=== PATIENT | female | born 1950 | race Caucasian/White ===

== ENCOUNTER → 2016-12-25 | Outpatient (CLI) | payer OTHER ==
[~2016-12-25] MED LIST: ACYCLOVIR; ACYCLOVIR400 MG PO; COMBIVENT U/D3 M2 INH; COMBIVENT14.7 GM IN; FLOVENT HFA10.6 GM INH; FLOVENT7.9 GM IN; GABAPENTIN300 MG PO; GAS RELIEF125 MG PO; GENTEAL15 ML; IMMODIUM1 MG/5 M1 PO; IMODIUM MS REL1 EAC1 PO; LACTAID FAS9000 UNI1 PO; LEVOCETIRIZINE D5 MG PO; LISINOPRIL20 MG PO; MORPHINE SULFAT15 MG PO; MS CONTIN15 MG PO; MSIR15 MG PO; MULTI VITAMIN1 EACH PO; NABUMETONE500 M1 PO; PANTOPRAZOLE SO40 MG PO; PHENERGAN25 M1 PO; SERTRALINE HCL100 M1 PO; XYZAL5 MG PO; ZOLOFT100 MG PO
--- NOTE | ~2016-12-25 | BD1 ---
[facility] A Service of [facility] & [facility] RADIOLOGY TEXT RESULTS PATIENT: AARON NOEL LOCATION: [facility] : 48 UNIT #: [id number] AGE: [address]: DELONTE HENRIQUEZ APRN SEX: F ORDER DR: [id number] [facility] [address] [place], [place] [address] [id number] O MR#: [id number] Acc #: [id number] NAME: AARON NOEL : 1950 SEX: F STUDY DATE/TIME: 12/25/2016 10:13 UNIT: [facility] ROOM: STUDY DESCRIPTION: BD Dexa Bone Dens 1+ Site Attending Physician: Delonte Henriquez Aprn Referring Physician: Delonte Henriquez Aprn Ordering Physician: Delonte Henriquez Aprn Primary Care Physician: Sundeep Vickers M.D. MEDICAL IMAGING REPORT This report is preliminary unless electronic signature is present EXAM DXA scan, 12/25/2016 HISTORY Status post menopause with no hormone replacement therapy. Osteopenia. Hysterectomy at age 36. Family history of breast carcinoma in mother. Rheumatoid arthritis. Left hip replacement. Hypertension with blood pressure medication. Anticonvulsant use for 1-1/2 years. Family history of osteoporosis in mother and sister. FINDINGS Bone mineral density in the lumbar spine from L1-L4 was 1.197 g/cm2 which is 1.4 standard deviations above the mean when compared to the young adult reference population which is within the range of normal. This is 3.3 standard deviations above the mean when compared to the age-matched population. Bone mineral density in the right femoral neck was 0.859 g/cm2 which is 0.1 standard deviations above the mean when compared to the young adult reference population which is within the range of normal. This is 1.8 standard deviations above the mean when compared to the age-matched population. IMPRESSION Bone mineral density in the lumbar spine and right hip within the range of normal. Dictated by... Oni Escobar M.D. THIS IS AN ELECTRONICALLY VERIFIED REPORT Oni Escobar M.D. at 12/25/2016 4:36 PM KRT/dedrick [facility]. [facility] A Service of [facility] & [facility] RADIOLOGY TEXT RESULTS PATIENT: AARON NOEL LOCATION: [facility] : [birth year] UNIT #: [id number] AGE: [address]: DELONTE HENRIQUEZ APRN SEX: F ORDER DR: TD: 12/25/2016 13:56 JOB #: [id number] MEDICAL IMAGING REPORT Page 1 of 1 COPY
== END | disposition home or self-care (01) ==
LOC: CWCC 09:57
DX: M81.0 Age-related osteoporosis without current pathological fracture (principal); Z51.81 Encounter for therapeutic drug level monitoring; Z79.899 Other long term (current) drug therapy
CPT/HCPCS: 77080

== ENCOUNTER → 2017-02-18 | Outpatient (CLI) | payer OTHER | END | disposition home or self-care (01) | LOC: CLAB 17:20 | DX: R19.7 Diarrhea, unspecified (principal) | CPT/HCPCS: 87493 ==